=== PATIENT | female | born 1970 | race Two or more races ===

== ENCOUNTER 2021-05-05 17:50 | Emergency (ER) | payer OTHER ==
[~2021-05-05] VITALS: Ht 149.9 cm; Wt 45.4 kg
--- NOTE | 2021-05-05 18:00 | NUR ---
SANTHOSH RA60 from Home "Abdominal pain front to back/constipation xcouple day". On room air, breathing evenly and unlabored. connected to the monitor and pulse ox. kept comfortable, will continue to monitor accordingly.
[2021-05-05 18:15] LABS: BASOPHILS # (AUTO) 0.1 K/uL (0.0-0.2); BASOPHILS % (AUTO) 0.5 % (0.0-2.0); EOSINOPHILS % (AUTO) 0.5 % (0.0-6.0); HEMATOCRIT 42 % (33-45); HEMOGLOBIN 13.5 g/dL (11.5-14.8); LYMPHOCYTES # (AUTO) 2.7 K/uL (0.8-4.8); LYMPHOCYTES % (AUTO) 21.4 % (20.0-44.0); MEAN CORPUSCULAR HGB CONC 32 g/dl (31.0-36.0); MEAN CORPUSCULAR VOLUME 85 fL (82-100); MONOCYTES % (AUTO) 7.6 % (2.0-12.0); PLATELET COUNT (AUTO) 309 K/uL (150-450); RED BLOOD CELL COUNT(AUTO) 4.98 MIL/uL (4.0-5.2); WHITE BLOOD COUNT (AUTO) 12.8 K/uL (4.3-11.0)
[2021-05-05 18:23] LABS: CALCIUM, SERUM 8.9 mg/dL (8.5-10.1); CREATININE 1.3 mg/dL (0.6-1.3); POTASSIUM 3.7 mmol/L (3.5-5.1)
[2021-05-05 18:28] LABS: BILIRUBIN,DIRECT 0.1 mg/dL (0.0-0.2); BILIRUBIN,TOTAL 0.3 mg/dL (0.2-1.0); TOTAL PROTEIN, SERUM 6.9 g/dL (6.4-8.2)
[2021-05-05] MEDS ORDERED: IOHEXOL-300 100 ML VIAL IV ONE (18:34)
[2021-05-05] MEDS ORDERED: CT SWABBABLE VALVE TRANS SET 1 EA INFUS.SET MC ONE (18:34)
[2021-05-05] MEDS ORDERED: IV NS 0.9% 250 ML IV ONE (18:34)
--- NOTE | 2021-05-05 19:01 | NUR ---
[place] [id number] [phone]
[2021-05-05] MEDS ORDERED: KETOROLAC TROMETHAMINE 15 MG/ML VIAL ONE ×2 (19:06→19:57)
[2021-05-05] MEDS ORDERED: KETOROLAC TROMETHAMINE INJ 30 MG/ML VIAL IV ONE ×2 (19:30→20:00)
[2021-05-05] MEDS ORDERED: TAMS-12 PO (19:53)
[2021-05-05] MEDS ORDERED: IBUP-1957 PO (19:53)
--- NOTE | 2021-05-05 20:11 | NUR ---
Patient discharged to home in stable condition. Rx and Written and verbal after care instructions given. Patient verbalizes understanding of instruction.
[2021-05-05 20:13] VITALS: BP 131/74
== END 2021-05-05 20:13 | disposition home or self-care (01) ==
LOC: ER 17:54
DX: N20.0 Calculus of kidney (principal); F17.200 Nicotine dependence, unspecified, uncomplicated
CPT/HCPCS: 74177; 80048; 80076; 83690; 85025; 96374; 96376; 99285; J1885 ×2; J7050; Q9967